=== PATIENT | female | born 1945 | race Caucasian/White ===

== ENCOUNTER 2018-04-30 06:55 | Inpatient (IN) | payer OTHER, BC ==
[~2018-04-30] VITALS: Ht 165.1 cm; Wt 56.8 kg
[2018-04-30 08:16] LABS: BASOPHIL % 0.2 % (0-2); PLATELET COUNT 242 x10^3mcL (130-400); RED CELL DISTRIBUTION WIDTH 13.9 % (11.5-14.5)
[2018-04-30 08:25] LABS: microscopic required? NO
[2018-04-30 08:30] LABS: CALCIUM 9.4 mg/dL (8.5-10.1); CARBON DIOXIDE 27.9 mmol/L (21-32); CHLORIDE SERUM 108 mmol/L (98-107); CREATININE SERUM 0.7 mg/dL (0.6-1.0); GFR1 > 60 mL/min; GLUCOSE SERUM 110 mg/dL (74-106); POTASSIUM SERUM 3.7 mmol/L (3.5-5.1); SODIUM SERUM 143 mmol/L (136-145)
[2018-04-30 08:32] LABS: UA SPECIFIC GRAVITY 1.025 (1.005-1.035); urine erythrocyte NEGATIVE (NEGATIVE)
[2018-04-30 08:34] LABS: ALBUMIN 3.4 g/dL (3.4-5.0); ALKALINE PHOSPHATASE 73 U/L (46-116); ALT/SGPT 21 U/L (14-59); AST/SGOT 15 U/L (15-37); BILIRUBIN TOTAL 0.47 mg/dL (0.20-1.00); CHOLESTEROL 122 mg/dL (<200); HDL CHOLESTEROL 43 mg/dL (40-60); MAGNESIUM 1.7 mg/dL (1.8-2.4); PHOSPHOROUS 3.7 mg/dL (2.5-4.9); TOTAL PROTEIN, SERUM 6.6 g/dL (6.4-8.2)
[2018-04-30] MEDS ORDERED: LEXAPRO5 M1 PO (09:40)
[2018-04-30] MEDS ORDERED: ZYPREXA10 M1 PO (09:40)
[2018-04-30] MEDS ORDERED: PROBIOTIC1 EAC1 PO (09:40)
[2018-04-30] MEDS ORDERED: MAGNESIUM OXID400 MG PO (09:40)
[2018-04-30] MEDS ORDERED: MULTIVITAMIN1 SGL PO (09:40)
[2018-04-30] MEDS ORDERED: PRILOSEC OTC20 M1 PO (09:41)
[2018-04-30] MEDS ORDERED: ARICEPT5 MG PO (09:42)
[2018-04-30] MEDS ORDERED: SIMVASTATIN40 M1 PO (09:42)
[2018-04-30 12:26] LABS: CHOLESTEROL/HDL RATIO 3.1
[2018-04-30 12:29] LABS: T3 TOTAL 0.97 ng/mL
[2018-04-30 12:34] LABS: FREE T4 0.86 ng/dL (0.76-1.46); FREE THYROXINE INDEX 2.2 ug/dL (1.4-4.5); T4(THYROXINE) 6.8 ug/dL (4.7-13.3)
[2018-04-30 13:40] LABS: AMPHETAMINE QUAL UR NONE DETECTED (See below)
[2018-04-30 14:10] VITALS: BP 98/58
[2018-04-30 14:41] VITALS: BP 110/53
[2018-04-30 17:49] VITALS: BP 96/44
[2018-04-30 21:05] VITALS: BP 127/63
[2018-05-01 05:47] VITALS: BP 93/45
[2018-05-01 06:48] LABS: BASOPHIL % 0.3 % (0-2); PLATELET COUNT 182 x10^3mcL (130-400)
[2018-05-01 06:52] LABS: CALCIUM 8.6 mg/dL (8.5-10.1); CARBON DIOXIDE 28.9 mmol/L (21-32); CHLORIDE SERUM 110 mmol/L (98-107); CREATININE SERUM 0.7 mg/dL (0.6-1.0); GFR1 > 60 mL/min; GLUCOSE SERUM 88 mg/dL (74-106); MAGNESIUM 1.7 mg/dL (1.8-2.4); POTASSIUM SERUM 3.8 mmol/L (3.5-5.1); SODIUM SERUM 144 mmol/L (136-145)
[2018-05-01 09:45] VITALS: BP 106/40
[2018-05-01 12:56] VITALS: BP 103/41
[2018-05-01 17:54] VITALS: BP 104/53
[2018-05-01 22:08] VITALS: BP 101/41
[2018-05-02 06:02] VITALS: BP 90/41
[2018-05-02 06:13] LABS: BASOPHIL % 0.4 % (0-2); PLATELET COUNT 172 x10^3mcL (130-400); RED CELL DISTRIBUTION WIDTH 14.4 % (11.5-14.5)
[2018-05-02 08:37] VITALS: BP 96/45
[2018-05-02 16:20] VITALS: BP 112/53
[2018-05-02 22:47] VITALS: BP 99/48
[2018-05-03 06:15] VITALS: BP 98/47
[2018-05-03 06:34] LABS: CALCIUM 8.1 mg/dL (8.5-10.1); CARBON DIOXIDE 26.8 mmol/L (21-32); CHLORIDE SERUM 115 mmol/L (98-107); CREATININE SERUM 0.6 mg/dL (0.6-1.0); GFR1 > 60 mL/min; GLUCOSE SERUM 93 mg/dL (74-106); POTASSIUM SERUM 3.9 mmol/L (3.5-5.1); SODIUM SERUM 147 mmol/L (136-145)
[2018-05-03 06:51] LABS: BASOPHIL % 0.5 % (0-2); PLATELET COUNT 176 x10^3mcL (130-400)
[2018-05-03 08:53] VITALS: BP 102/46
[2018-05-03 12:38] VITALS: BP 126/57
[2018-05-03] MEDS ORDERED: CLEOCIN HCL300 MG PO (13:36)
[2018-05-03] MEDS ORDERED: LAC PO (13:36)
[2018-05-03 19:16] VITALS: BP 135/72
[2018-05-03 21:08] VITALS: BP 121/58
[2018-05-04 05:30] VITALS: BP 103/45
[2018-05-04 06:15] LABS: CALCIUM 8.4 mg/dL (8.5-10.1); CARBON DIOXIDE 27.9 mmol/L (21-32); CHLORIDE SERUM 115 mmol/L (98-107); CREATININE SERUM 0.6 mg/dL (0.6-1.0); GFR1 > 60 mL/min; GLUCOSE SERUM 87 mg/dL (74-106); POTASSIUM SERUM 3.7 mmol/L (3.5-5.1); SODIUM SERUM 148 mmol/L (136-145)
[2018-05-04 06:42] LABS: BASOPHIL % 0.6 % (0-2); PLATELET COUNT 200 x10^3mcL (130-400); RED CELL DISTRIBUTION WIDTH 13.9 % (11.5-14.5)
[2018-05-04 09:00] VITALS: BP 129/68
[2018-05-04] MEDS ORDERED: ZYPREXA10 M1 PO (09:39)
[2018-05-04 09:50] VITALS: Ht 165.1 cm; Wt 56.8 kg
[2018-05-04 12:52] VITALS: BP 113/91
[2018-05-04 17:13] VITALS: BP 124/56
[2018-05-04 21:31] VITALS: BP 116/55
[2018-05-05 05:21] VITALS: BP 116/55
[2018-05-05 05:34] VITALS: BP 112/59
[2018-05-05 06:24] LABS: BASOPHIL % 0.6 % (0-2); PLATELET COUNT 220 x10^3mcL (130-400); RED CELL DISTRIBUTION WIDTH 13.8 % (11.5-14.5)
[2018-05-05 06:45] LABS: CALCIUM 8.2 mg/dL (8.5-10.1); CARBON DIOXIDE 27.1 mmol/L (21-32); CHLORIDE SERUM 114 mmol/L (98-107); CREATININE SERUM 0.6 mg/dL (0.6-1.0); GFR1 > 60 mL/min; GLUCOSE SERUM 87 mg/dL (74-106); POTASSIUM SERUM 3.3 mmol/L (3.5-5.1); SODIUM SERUM 145 mmol/L (136-145)
[2018-05-05 08:52] VITALS: BP 115/48
[2018-05-05 13:15] VITALS: BP 96/58
[2018-05-05 16:42] VITALS: BP 113/44
[2018-05-05 20:34] VITALS: BP 104/50
[2018-05-06 05:18] VITALS: BP 116/52
[2018-05-06 06:47] LABS: BASOPHIL % 0.7 % (0-2); PLATELET COUNT 236 x10^3mcL (130-400); RED CELL DISTRIBUTION WIDTH 13.6 % (11.5-14.5)
[2018-05-06 07:10] LABS: CARBON DIOXIDE 27.3 mmol/L (21-32); CHLORIDE SERUM 112 mmol/L (98-107); CREATININE SERUM 0.8 mg/dL (0.6-1.0); GFR1 > 60 mL/min; GLUCOSE SERUM 87 mg/dL (74-106); POTASSIUM SERUM 3.5 mmol/L (3.5-5.1); SODIUM SERUM 145 mmol/L (136-145)
[2018-05-06 09:37] VITALS: BP 112/49
[2018-05-06 13:15] VITALS: BP 122/58
[2018-05-06 16:50] VITALS: BP 125/57
[2018-05-06 20:30] VITALS: BP 130/56
[2018-05-07 04:16] VITALS: BP 103/62
[2018-05-07 06:31] LABS: CALCIUM 8.9 mg/dL (8.5-10.1); CARBON DIOXIDE 28.7 mmol/L (21-32); CHLORIDE SERUM 110 mmol/L (98-107); CREATININE SERUM 0.8 mg/dL (0.6-1.0); GLUCOSE SERUM 86 mg/dL (74-106); POTASSIUM SERUM 3.8 mmol/L (3.5-5.1); SODIUM SERUM 146 mmol/L (136-145)
[2018-05-07 06:43] LABS: BASOPHIL % 0.9 % (0-2); PLATELET COUNT 246 x10^3mcL (130-400)
[2018-05-07 08:57] VITALS: BP 116/55
[2018-05-07 13:09] VITALS: BP 104/51
[2018-05-07 16:14] VITALS: BP 119/51
[2018-05-07 21:42] VITALS: BP 114/58
[2018-05-08 05:52] VITALS: BP 109/45
[2018-05-08 06:16] LABS: BASOPHIL % 0.8 % (0-2); PLATELET COUNT 269 x10^3mcL (130-400); RED CELL DISTRIBUTION WIDTH 14.2 % (11.5-14.5)
[2018-05-08 06:28] LABS: CALCIUM 8.7 mg/dL (8.5-10.1); CARBON DIOXIDE 29.2 mmol/L (21-32); CHLORIDE SERUM 111 mmol/L (98-107); GLUCOSE SERUM 87 mg/dL (74-106); POTASSIUM SERUM 3.4 mmol/L (3.5-5.1); SODIUM SERUM 146 mmol/L (136-145)
[2018-05-08 06:43] LABS: CREATININE SERUM 0.8 mg/dL (0.6-1.0); GFR1 > 60 mL/min
[2018-05-08 08:42] VITALS: BP 124/60
[2018-05-08 10:25] VITALS: BP 124/60
[2018-05-08 12:20] VITALS: BP 119/59
[2018-05-08 16:15] VITALS: BP 120/63
[2018-05-08 21:05] VITALS: BP 101/42
[2018-05-09 05:37] VITALS: BP 110/50
[2018-05-09 06:21] LABS: CALCIUM 8.6 mg/dL (8.5-10.1); CARBON DIOXIDE 29.4 mmol/L (21-32); CHLORIDE SERUM 111 mmol/L (98-107); CREATININE SERUM 0.7 mg/dL (0.6-1.0); GFR1 > 60 mL/min; GLUCOSE SERUM 86 mg/dL (74-106); POTASSIUM SERUM 3.4 mmol/L (3.5-5.1); SODIUM SERUM 145 mmol/L (136-145)
[2018-05-09 07:26] LABS: BASOPHIL % 0.9 % (0-2); PLATELET COUNT 297 x10^3mcL (130-400); RED CELL DISTRIBUTION WIDTH 13.9 % (11.5-14.5)
[2018-05-09 09:33] VITALS: BP 117/59
[2018-05-09 14:00] VITALS: BP 122/60
[2018-05-09 17:07] VITALS: BP 129/55
[2018-05-09 21:47] VITALS: BP 126/70
[2018-05-10 05:59] VITALS: BP 144/43
[2018-05-10 06:04] LABS: BASOPHIL % 0.7 % (0-2); PLATELET COUNT 316 x10^3mcL (130-400); RED CELL DISTRIBUTION WIDTH 14.3 % (11.5-14.5)
[2018-05-10 06:22] LABS: CALCIUM 8.7 mg/dL (8.5-10.1); CARBON DIOXIDE 27.5 mmol/L (21-32); CHLORIDE SERUM 111 mmol/L (98-107); CREATININE SERUM 0.7 mg/dL (0.6-1.0); GFR1 > 60 mL/min; GLUCOSE SERUM 89 mg/dL (74-106); POTASSIUM SERUM 3.9 mmol/L (3.5-5.1); SODIUM SERUM 146 mmol/L (136-145)
[2018-05-10 09:20] VITALS: BP 123/61
[2018-05-10 17:22] VITALS: BP 115/58
[2018-05-10 20:37] VITALS: BP 129/62
[2018-05-11] VITALS (7 sets, daily range): BP systolic 103–130; BP diastolic 50–71
[2018-05-11 06:13] LABS: BASOPHIL % 0.9 % (0-2); PLATELET COUNT 315 x10^3mcL (130-400); RED CELL DISTRIBUTION WIDTH 14.4 % (11.5-14.5)
[2018-05-11 06:24] LABS: CALCIUM 9.1 mg/dL (8.5-10.1); CHLORIDE SERUM 108 mmol/L (98-107); CREATININE SERUM 0.7 mg/dL (0.6-1.0); GFR1 > 60 mL/min; GLUCOSE SERUM 84 mg/dL (74-106); POTASSIUM SERUM 3.6 mmol/L (3.5-5.1); SODIUM SERUM 144 mmol/L (136-145)
[2018-05-12 05:37] VITALS: BP 143/70
[2018-05-12 10:28] VITALS: BP 109/52
[2018-05-12 17:16] VITALS: BP 107/54
[2018-05-12 20:28] VITALS: BP 122/60
[2018-05-13 05:35] VITALS: BP 128/68
[2018-05-13 08:54] VITALS: BP 148/67
[2018-05-13 09:10] LABS: BASOPHIL % 0.8 % (0-2); PLATELET COUNT 333 x10^3mcL (130-400); RED CELL DISTRIBUTION WIDTH 14.1 % (11.5-14.5)
[2018-05-13 09:21] LABS: CALCIUM 9.2 mg/dL (8.5-10.1); CHLORIDE SERUM 107 mmol/L (98-107); CREATININE SERUM 0.7 mg/dL (0.6-1.0); GFR1 > 60 mL/min; GLUCOSE SERUM 89 mg/dL (74-106); MAGNESIUM 1.8 mg/dL (1.8-2.4); PHOSPHOROUS 3.2 mg/dL (2.5-4.9); POTASSIUM SERUM 3.8 mmol/L (3.5-5.1); SODIUM SERUM 144 mmol/L (136-145)
[2018-05-13 18:50] VITALS: BP 139/70
[2018-05-13 21:12] VITALS: BP 108/42
[2018-05-14 06:00] VITALS: BP 117/68
[2018-05-14 08:35] VITALS: BP 110/68; BP 117/68
[2018-05-14 13:06] VITALS: BP 110/68
[2018-05-14 17:18] VITALS: BP 120/67
[2018-05-14 20:41] VITALS: BP 114/54
[2018-05-15 05:23] VITALS: BP 118/70
[2018-05-15 08:33] VITALS: BP 98/57
[2018-05-15 17:17] VITALS: BP 106/53
[2018-05-15 18:15] VITALS: BP 106/53
[2018-05-15] MEDS ORDERED: EPZICOM1 TAB PO (18:28)
[2018-05-15] MEDS ORDERED: LEVAQUIN750 MG PO (18:28)
[2018-05-15 20:28] VITALS: BP 124/60
== END 2018-05-15 20:26 | DRG 177 ==
LOC: ED 06:55 → MU 10:34 → DU 10:34 → MU 05-10 07:00
PROVIDERS: Emergency Medicine; Family Medicine; Family Medicine Sports Medicine; General Practice
DX: J69.0 Pneumonitis due to inhalation of food and vomit (principal); G93.41 Metabolic encephalopathy; N17.0 Acute kidney failure with tubular necrosis; K85.90 Acute pancreatitis without necrosis or infection, unspecified; Z68.1 Body mass index [BMI] 19.9 or less, adult; F33.3 Major depressive disorder, recurrent, severe with psychotic symptoms; E87.0 Hyperosmolality and hypernatremia; E86.0 Dehydration; I10 Essential (primary) hypertension; K21.9 Gastro-esophageal reflux disease without esophagitis; E87.6 Hypokalemia; E83.42 Hypomagnesemia; M81.0 Age-related osteoporosis without current pathological fracture; G30.9 Alzheimer's disease, unspecified; F02.80 Dementia in other diseases classified elsewhere, unspecified severity, without behavioral disturbance, psychotic disturbance, mood disturbance, and anxiety; Z91.19 Patient's noncompliance with other medical treatment and regimen
CPT/HCPCS: 83880; 84439; 90732; 94150; J2060; J2405; J2543; J3475; J3486; J7030; J7050; J7620; Q0092